=== PATIENT | male | born 1945 | race Caucasian/White ===

== ENCOUNTER → 2019-05-10 13:34 | Outpatient (CLI) | payer OTHER, SELFPAY ==
[2019-05-10 13:53] LABS: Bacteria Urine None Seen; RBC Urine None Seen (0-5/HPF); WBC Urine None Seen (0-5/HPF)
[2019-05-10 14:18] LABS: Add Manual Diff / Slide Review NO; Basophils Absolute Auto 0 /uL (0-100); Basophils Percent Auto 0.3 % (0-2); Eosinophils Absolute Auto 100 /uL (0-450); Eosinophils Percent Auto 1.4 % (2-4); Hematocrit 39.3 % (41-53); Hemoglobin 13.7 g/dL (13.5-17.5); Lymphocytes Absolute Auto 1400 /uL (1100-4500); Lymphocytes Percent Auto 24.1 % (25-40); Mean Corpuscular HGB Conc 34.8 % (30-36); Mean Corpuscular Hemoglobin 30.8 PG (26-34); Mean Corpuscular Volume 88.7 fL (80-100); Monocytes Absolute Auto 300 /uL (0-900); Monocytes Percent Auto 5.8 % (3-14); Neutrophils Absolute Auto 3900 /uL (1500-7000); Neutrophils Percent Auto 68.4 % (50-75); Platelet Count 115 X10^3/uL (150-400); Red Blood Cell Count 4.43 X10^6/uL (4.5-5.9); Red Cell Distribution Width 13.8 % (11.6-14.8); White Blood Cell Count 5.8 X10^3/uL (4.5-11.0)
[2019-05-10 14:47] LABS: BUN Creatinine Ratio 23.3 (6-22); Blood Urea Nitrogen 21 mg/dL (9-20); Calcium 9.4 mg/dL (8.4-10.2); Carbon Dioxide 30 mmol/L (22-32); Chloride 99 mmol/L (98-107); Estimated Glomerular Filt Rate > 60.0 mL/min (>60); Glucose 130 mg/dL (80-110); HEMOLYSIS < 15 (0-50); Potassium 4.4 mmol/L (3.4-5.1); Sodium 137 mmol/L (137-145)
[2019-05-10 14:51] LABS: Hemoglobin A1C% w Est Avg Glu 5.4 % (4.0-6.0)
[2019-05-10 14:59] LABS: Transferrin 209 mg/dL (206-381)
[2019-05-10 15:47] LABS: Appearance Urine UA CLEAR; Bilirubin Urine UA NEGATIVE (NEGATIVE); Color Urine UA YELLOW; Glucose Urine UA NEGATIVE (Negative); Ketones Urine UA NEGATIVE (NEGATIVE); Leukocyte Esterase Urine UA NEGATIVE (NEGATIVE); Nitrite Urine UA NEGATIVE (Negative); Occult Blood Urine UA NEGATIVE (Negative); Protein Urine UA NEGATIVE (Negative); Specific Gravity Urine UA <=1.005 (1.000-1.035); Urobilinogen Urine UA 0.2 E.U./dL (0.2)
[2019-05-10 16:31] LABS: Culture Indicated Urine Cult Not Indicated
== END ==
PROVIDERS: PCP Emergency Medicine Emergency Medical Services; Visit Provider Orthopaedic Surgery
DX: Z01.818 Encounter for other preprocedural examination (principal); E61.1 Iron deficiency; R73.9 Hyperglycemia, unspecified; N39.0 Urinary tract infection, site not specified
CPT/HCPCS: 36415; 80048; 81001; 83036; 84466; 85025; 93005

== ENCOUNTER 2019-06-25 11:25 | Inpatient (IN) | payer OTHER, SELFPAY ==
[2019-06-11 09:52] VITALS: BMI 37.3
[2019-06-25] VITALS (14 sets, daily range): BP systolic 124–157; BP diastolic 67–108; PULSE 46–80; RESP 12–19; TEMP 36.1–36.9; O2SAT 92–99; BMI 37.3
--- NOTE | 2019-06-25 11:16 | DI.RAD.S_ITS ---
PROCEDURE: XR SHOULDER LT 1V INDICATIONS: post op TECHNIQUE: One view of the shoulder was acquired. COMPARISON: None. FINDINGS: Bones: On this single postoperative image, a reverse total shoulder arthroplasty has been placed. No findings of hardware failure or hardware loosening are seen. The visualized ribs are unremarkable. No suspicious lytic or blastic lesions are seen. Soft tissues: No suspicious soft tissue calcifications. A postoperative drain has been placed. The visualized lung demonstrates an unremarkable appearance. IMPRESSION: Normal postoperative examination. Dictated by: Lito Araujo M.D. on 06/25/2019 at 16:04 Approved by: Lito Aarujo M.D. on 06/25/2019 at 16:05
[2019-06-25] MEDS: CELECOXIB 200 MG CAPSULE PO (12:26)
[2019-06-25] MEDS: ACETAMINOPHEN 325 MG TABLET 975 MG PO ×2 (12:26→20:40)
[2019-06-25] MEDS: PREGABALIN 75 MG CAPSULE PO (12:27)
[2019-06-25] MEDS: LACTATED RINGERS 1,000 ML 42 ML IV ×2 (12:43→16:07)
[2019-06-25] MEDS: MIDAZOLAM 2 MG/2 ML VIAL IV (13:42)
--- NOTE | 2019-06-25 13:46 | PM.PREOP ---
Pre-operative Note Interval Note History & Physical reviewed/Exam performed by Physician: Yes Changes to H&P: No
--- NOTE | 2019-06-25 14:03 | PM.OP.1 ---
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 Radiographic studies have revealed changes consistent with a massive rotator cuff tear and arthritis. They have elected to proceed with reverse total shoulder replacement after discussion of the risks benefits and alternatives. Risks discussed included but were not limited to: Failure to improve, instability, infection, nerve damage, deep venous thrombosis, pulmonary embolism, stroke, coma, myocardial infarction and . Surgeon: Mehdi Gilmore Materials And Processes Manager: Azalia Collazo Click Yes if Unassisted: No Anesthesia Type: General, Peripheral nerve block and Local Operative Notes Findings: Significant osteoarthritis and large rotator cuff tear. Closure Type: primary Specimen(s): none sent Prosthetic devices, grafts, tissues, transplants, or devices: Implants used in this procedure were manufactured by the [employer] and included an RSP total shoulder with a size 14 stem with a standard cup, a standard +436 mm socket insert, a 36 mm neutral glenoid head with retaining screw, a 30 mm screw length glenoid base plate with 4 locking screws measuring 26 mm, 26 mm, 14 mm and 14 mm in length. Applied: drain(s) and implant(s) Estimated Blood Loss (mL): 200 Blood products transfused: none Procedure in detail: The patient was seen in the preoperative area where they identified the left shoulder as the operative site and this was marked with my initials. They received preoperative antibiotics and underwent the induction of an interscalene block. They were taken to the operating room and placed on the operating room table in a supine position with the underwent the induction of a general anesthetic. There were then repositioned in the ?beach chair? position using a dedicated positioner. All pressure points were well padded. The knees were slightly bent to prevent tension on the sciatic nerves. The left arm was prepared from the fingertips to the base of the neck with ChloraPrep in the usual fashion and draped through sterile drapes. An approximately 15 cm incision was created starting at the clavicle just above the coracoid and going to the deltoid insertion. The deltopectoral interval was used to access the shoulder taking the vein to the medial side. The vein was protected throughout the case. The upper 1 cm of the pectoralis major was released. The biceps tendon was identified and used as a guide to releasing the remaining subscapularis. The biceps itself had ruptured. The shoulder was dislocated and a proximal humeral osteotomy performed using an extramedullary guide. A proximal humeral protector was then placed. Retractors were placed access the glenoid. The soft tissues were removed circumferentially around the glenoid. The guide was used to drill the guide hole in the center of the inferior glenoid. The tap was placed and used as a guide for the reamer. The tap was then removed and the glenoid base plate inserted. The peripheral locking screws were then placed through the appropriate guide. A trial glenoid head was applied. We then turned our attention to the humerus. The proximal humeral protector was removed. Cylindrical reamers were used to size the canal. Broaching was then performed beginning with a small broach and working up until a line to line fit with the reamer was obtained. The guide for the proximal metaphyseal reamer was then applied and the metaphysis was reamed appropriately. The trial metaphyseal portion of the body was then applied to the broach. Trial reductions were performed and the size of the glenoid head and the cup were optimized. Stability was checked in maximal internal and external rotation and range of motion was checked to allow access to the top of the head, internal rotation to an excess of 50? in the ?scarecrow position? and the ability to reach the groin. The appropriate final prosthetic components were then opened. The glenoid head was impacted into position and checked for rotational and axial stability before placing the set screw. The humeral prosthetic was then impacted into position. The humeral cup was placed. The joint was relocated and irrigated. A deep drain was placed. The deltopectoral interval was reapproximated with 0 Vicryl. Subcutaneous layer was closed with interrupted 3-0 Vicryl and skin with a running 3 0 V lock suture. Subcutaneous tissues were then infiltrated with 0.5% Marcaine for postoperative pain control. An Aquacel Ag dressing was applied and the patient's arm was placed in a sling. The patient was then transferred to the recovery room in good condition having tolerated the procedure well. Complications: none Post-operative Condition: stable Disposition: PACU Plan for aftercare: The patient will be maintained on a standard total shoulder protocol and likely discharge tomorrow.
[2019-06-25] MEDS: CEFAZOLIN 2 GM/100 ML FROZ.PIGGY IV (14:25)
[2019-06-25] MEDS: TRANEXAMIC ACID 1,000 MG VIAL 1000 MG INJ ×2 (14:41→15:57)
[2019-06-25] MEDS: BUPIVACAINE 0.5% W/ EPI (PF) 30 ML VIAL INJ (14:59)
--- NOTE | 2019-06-25 15:05 | SUR.OPER ---
Beach chair with Schlein shoulder positioner. Lower body on padded OR bed. Head in foam padded head cradle, secured with straps. Non-operative arm secured <90 degrees abduction. Pillow under knees,gel pad under heels. Safety belt at thigh. Cloth tape over blanket over lower legs.
--- NOTE | 2019-06-25 15:56 | SUR.PREOP ---
Block start time 1342. Monitoring initiated and maintained throughout procedure. Oxygen and medications given per anesthesiologist instructions. Patient remained stable throughout procedure, no adverse reactions noted. Block end time 1351. Patient left for OR in stable condition.
[2019-06-25] MEDS: HYDROMORPHONE 2 MG INJ IV ×2 (17:13→17:25)
--- NOTE | 2019-06-25 17:31 | SUR.PHASEI ---
Pt came to pacu with oral airway, out soon after arrival. medicated with dilaudid, report called to neva. then to les watson.
[2019-06-25] MEDS: OXYCODONE IR 5 MG TABLET PO ×2 (17:54→20:41)
[2019-06-25] MEDS: BENZOCAINE/MENTHOL 1 LOZ PKT 1 EACH PO ×2 (18:02→19:39)
[2019-06-25] MEDS: LACTATED RINGERS 1,000 ML 125 ML IV (19:34)
[2019-06-25] MEDS: ASPIRIN EC 81 MG TABLET PO (20:38)
[2019-06-25] MEDS: PRAZOSIN HCL 5 MG CAPSULE 10 MG PO (20:38)
[2019-06-25] MEDS: QUETIAPINE 25 MG TABLET PO (20:38)
[2019-06-25] MEDS: TRAZODONE 50 MG TABLET 75 MG PO (20:39)
[2019-06-25] MEDS: DOCUSATE 100 MG CAPSULE PO (20:40)
[2019-06-25] MEDS: PROPRANOLOL 10 MG TABLET PO (20:41)
--- NOTE | 2019-06-25 22:26 | PC.NURSE ---
Admit/Evening Shift Note- Patient arrived to room from pacu via bed. Patient alert and oriented and able to make needs known to staff. Admission questions done, medications reviewed, and physical assessment completed. Oriented patient to bed and bed controls, room, bathroom, lights, phone, menu, and call dao /tv remote. safety measures in place. patient agrees to call for assistance. bed alarm set. safety measures in place. call dao and phone within reach.
[2019-06-26] VITALS: BP 137/86; PULSE 62; RESP 18; TEMP 36.6; O2SAT 94
[2019-06-26] MEDS: LACTATED RINGERS 1,000 ML 125 ML IV (03:22)
[2019-06-26] MEDS: OXYCODONE IR 5 MG TABLET PO (03:23)
[2019-06-26 03:32] VITALS: BP 135/89; PULSE 78; RESP 16; TEMP 36.8; O2SAT 94
[2019-06-26 06:19] LABS: Hemoglobin 12.7 g/dL (13.5-17.5); Mean Corpuscular HGB Conc 34.5 % (30-36); Mean Corpuscular Hemoglobin 30.8 PG (26-34); Mean Corpuscular Volume 89.4 fL (80-100); Platelet Count 103 X10^3/uL (150-400); Red Blood Cell Count 4.14 X10^6/uL (4.5-5.9); Red Cell Distribution Width 13.7 % (11.6-14.8); White Blood Cell Count 11.4 X10^3/uL (4.5-11.0)
--- NOTE | 2019-06-26 07:51 | PC.NURSE ---
Patient sleeping soundly with CPAP in place, did not wake at this time. Bed alarm active for safety, with call light within reach. IV fluids infusing as ordered. Anticipate PT eval today. Sling in place. COntinue to follow.
[2019-06-26] MEDS: METHADONE 5 MG TABLET PO (08:23)
[2019-06-26] MEDS: ASPIRIN EC 81 MG TABLET PO (08:23)
[2019-06-26] MEDS: ACETAMINOPHEN 325 MG TABLET 975 MG PO (08:23)
[2019-06-26] MEDS: DOCUSATE 100 MG CAPSULE PO (08:23)
[2019-06-26] MEDS: LORATADINE 10 MG TABLET PO (08:24)
[2019-06-26] MEDS: OXYCODONE IR 10 MG TABLET PO ×2 (08:24→11:23)
[2019-06-26] MEDS: CELECOXIB 200 MG CAPSULE PO (08:24)
[2019-06-26] MEDS: PROPRANOLOL 10 MG TABLET PO (08:25)
[2019-06-26] MEDS: POLYETHYLENE GLYCOL 3350 17 GM POWD.PACK PO (08:29)
[2019-06-26 09:00] VITALS: BP 136/70; PULSE 56; RESP 18; TEMP 36.7; O2SAT 97
--- NOTE | 2019-06-26 10:12 | PM.DS.1 ---
History of Present Illness History of Present Illness Date Patient Seen: 06/26/19 Time Patient Seen: 10:12 Chief complaint: Left Total Shoulder Arthroplasty Narrative: The history and physical are contained in the chart and a previously completed note. Please refer to that note for this information. Discharge Providers Provider Date of admission: 06/25/19 11:25 Discharge Date: 06/26/19 Consults: 06/25/19 18:50 Consult to Discharge Planning Routine Comment: Consult to Physical Therapy Evaluate & Treat Comment: PROM 90 FF, 0 ER, 0 Abd, IR to body, pendulums Physician Instructions: Evaluate and Treat Discharge provider: Mehdi Gilmore MD Summary Hospital Course Discharge Diagnosis: 1. Left shoulder posttraumatic osteoarthritis with large rotator cuff tear 2. Post hemorrhagic anemia Hospital Course: The patient was admitted to the hospital and taken directly to the operating room on June 25, 2019. He underwent a left reverse total shoulder replacement for the above-noted arthritis and cuff tear. He tolerated the procedure well. He was stable on postoperative day 1 and felt to be ready for discharge. Status at Discharge Cognitive/behavioral status at discharge: oriented Functional status at discharge: independent ambulation Overall status at discharge: patient is progressing back to baseline Time Spent with Patient Time spent: Less than 30 minutes Exam Vital Signs (past 8 hours): - 06/26/19 03:32 06/26/19 09:00 Temperature 98.2 F 98.1 F Pulse Rate 78 56 L Respiratory Rate 16 18 Blood Pressure 135/89 136/70 Pulse Oximetry 94 97 Oxygen Delivery Method Room Air,CPAP Oxygen Flow Rate 0 Narrative Exam Narrative: Left shoulder wound is dressed with no drainage on the bandage. Light touch is intact in the radial, ulnar, median, muscular cutaneous and axillary nerve distribution. He can extend his thumb, abduct his thumb, abduct his fingers and can fire his biceps and deltoid. Objective Labs Result Diagrams: 06/26/19 05:42 Labs: Laboratory Results - last 24 hr 06/26/19 05:42 WBC 11.4 H RBC 4.14 L Hgb 12.7 L Hct 37.0 L MCV 89.4 MCH 30.8 MCHC 34.5 RDW 13.7 Plt Count 103 L Discharge Plan Discharge Plan Patient Disposition: Home Discharge orders & Medications Prescriptions: New acetaminophen 325 mg Tablet 975 mg PO TID 30 Days Qty: 270 RF: 0 aspirin 81 mg Tablet,Delayed Release (Dr/Ec) 81 mg PO BID 42 Days Qty: 84 RF: 0 oxycodone 5 mg Tablet 5 mg PO Q3HR PRN (Reason: Pain, Moderate (4-6)) Qty: 40 RF: 0 Continued ibuprofen 200 mg Capsule 400 mg PO Q6H PRN (Reason: Pain) RF: 0 prazosin 5 mg Capsule 10 mg PO BEDTIME RF: 0 propranolol 10 mg Tablet 10 mg PO BID RF: 0 trazodone 150 mg Tablet 75 mg PO BEDTIME RF: 0 methadone 5 mg Tablet 5 mg PO DAILY RF: 0 quetiapine 50 mg Tablet 25 mg PO BEDTIME RF: 0 loratadine 10 mg Capsule 10 mg PO DAILY RF: 0 Discontinued celecoxib 200 mg Capsule 200 mg PO DAILY RF: 0 hydrocodone-acetaminophen 5-325 mg Tablet 1 - 2 tab PO Q4-6H PRN (Reason: Pain) RF: 0 Follow up/Referrals: Mehdi Gilmore MD [Physician] - 2 Weeks Discharge Health Status Multidrug resistant organism: No MDRO Diet/Activity/Treatments Diet: Diet as Tolerated and Regular Activity: You may use your left arm in front of your body below shoulder level. Leave the arm in the sling until instructed to do so by physical therapy. You may do pendulum exercises. Cold/Heat Therapy: You may apply ice to the left shoulder for 15 minutes every hour as needed for pain control. Skin/Wound/Dressing Care Report to your healthcare provider any signs of infection, such as:: chills, fever, night sweats, increased pain, unusual drainage and unusual redness Dressing: Leave the dressing intact until postoperative follow-up. You may shower with the dressing in place. If the central strip of the dressing becomes saturated with either water or blood, please call the office. Visit Report/Discharge Packet Instructions: DI for Prescription Opioid Use, DI for Shoulder Replacement Stand Alone Forms: Surgery Discharge Quality VTE Deep Vein Thrombosis/Pulmonary Embolism Present on Admission: No
--- NOTE | 2019-06-26 10:58 | PC.NURSE ---
Hemovac drain DC'd intact, patient tolerated well. Gauze dressing in place. Discharge instructions and home care handouts reviewed with patient and his , they state understanding and have no further questions and concerns at this time. IV removed intact. Patient has follow up scheduled. Instructed to call surgeons office with questions or concerns including possible signs or symptoms of infection.
--- NOTE | 2019-06-26 11:03 | PT.IIE ---
Current Diagnoses Post-traumatic osteoarthritis, left shoulder (06/25/19) Other specified postprocedural states (06/25/19) Surgery Performed Operation Date: 06/25/19 13:45 Actual Procedures p Total Shoulder Arthroplasty - Reverse(Left) - Mehdi Gilmore MD Surgical History (Last Updated 06/11/19 @ 10:25 by Lexi Mcdonough, RN) History of lumbar fusion (Acute) History of repair of left rotator cuff (Acute) History of repair of right rotator cuff (Acute) Hx of bilateral cataract extraction (Acute) Hx of hernia repair (Acute) Hx of tonsillectomy (Acute) Medical History (Last Updated 06/11/19 @ 10:25 by Lexi Mcdonough RN) Asthma (Acute) Hearing impaired (Acute) Lipoma (Acute) Nerve damage (Acute) Numbness and tingling (Acute) ASHOK on CPAP (Acute) PTSD (post-traumatic stress disorder) (Acute) Tremor of both hands (Acute) Physical Therapy Inpatient Evaluation/Re-Eval M1 PT/OT-IP Prior Functional Status Start: 06/26/19 10:50 Freq: NEEDED Status: Active Protocol: Document 06/26/19 09:20 MB (Rec: 06/26/19 11:03 MB [id number]) Medical Review Prior Functional Status Medical History Reviewed Yes Communication WNLs Mobility and Gait I Activities of Daily Living and IADL's I Prior Functional Level (Other details) A fall 6 months ago, tripping over his dog Social History Household Members spouse Living Arrangements House Number of Floors (Floors) One Floor Number of Stairs To Enter/Railing? 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 Gilmore arrives and states that pt may use his arm in front of him but is not to reach out to the side or carry weights. He may perform pendulums and is to wear sling for 2 weeks when up. Can perform pendulum to wash under arm pit and perform elbow and wrist ROM exercises. Dr. Gilmore does not state WB status when asked. M3 PT-IP Subjective Start: 06/26/19 10:50 Freq: NEEDED Status: Active Protocol: Document 06/26/19 09:20 MB (Rec: 06/26/19 11:03 MB [id number]) Subjective Physical Therapy Visit Type Type Initial Evaluation Visit Start Time 09:20 Visit Stop Time 09:57 Total Visit Minutes 37 Notes Pt is able to mobilize I, perform HEP as instructed by PT and has no further acute PT needs. Eval and d/c today Physical Therapy Visit Comments Patient Goals To go home today Therapy Pain Assessment Pain When Pain Assessed During Mobility Pain Present Pain Present Pain Reported Location Left Shoulder Intensity 7 Scale Used Numeric (1 - 10) Description Aching Pain Management Techniques Re-positioning M4 PT-IP Mobility and Gait Start: 06/26/19 10:50 Freq: NEEDED Status: Active Protocol: Document 06/26/19 09:20 MB (Rec: 06/26/19 11:03 MB [id number]) PT-Bed Mobility Assessment Rolling Level of Assist Independent Supine to Sit Supine to Sit Independent Scooting Scooting to Edge of Bed Independent PT-Transfer Assessment Sit to and From Stand Sit to and from Stand Independent Transfer Ability Level of Assist Independent Comments Mobility Comments Pt uses RUE for bed mobility and transfers, sling donned LUE Gait Assessment Gait Gait Assistance Required: Independent Distance (Feet) 200 Assistive Devices Assistive Device None Gait Deviations General Gait Pattern Within Normal Limits Comments Gait Comments Sling donned LUE When left sitting in chair, sling doffed and LUE supported on pillows and this reduces pain Stair Climbing Assessment Evaluation Level of Assist On Stairs Independent Devices Stair Climbing Assistive Devices Right Railing Technique/Endurance Stair Climbing Direction Ascend and Descend Stair Climbing Technique Step Over Step,Step to Step Number of Steps Climbed 3 Query Text: Comments Stair Climbing Comments Reciprocal gait ascend and 1 step at a time descend d/t rail on left and he has to reach over with his right hand PT-Balance Assessment Sitting Balance and Reactions Static Sitting Balance Ability Good Dynamic Sitting Balance Ability Good Standing Balance and Reactions Static Standing Balance Ability Good Dynamic Standing Balance Ability Good M5 PT-IP Objective Assessments Start: 06/26/19 10:50 Freq: NEEDED Status: Active Protocol: Document 06/26/19 09:20 MB (Rec: 06/26/19 11:03 [id number]) Orientation Orientation/Cognition Level of Alertness Alert Orientation Name,Age,Birthday,Month,Date, Year,Place,Situation Language Function Ability No Deficits Noted Safety Awareness Understands Safety Issues Memory Description No Deficits Noted Gross Range of Motion Upper Extremity ROM Assessment Right Impaired Impairments R shoulder s/p surgery in the past and flexion to 150 deg; s /p L reverse TSR so not tested Lower Extremity ROM Assessment Within Functional Limits Strength Upper Extremity Strength Assessment Bilaterally Impaired Shoulder R 4/5; L NT Elbow R 5/5; L NT Lower Extremity Strength Assessment Within Functional Limits Comments Strength Comments Pt can move left elbow, wrist and fingers, mild edema in hand Sensation Assessment Sensation Gross Sensation Right LE Impaired Comments Sensation Comments History of nerve damage left elbow M6 PT-IP Treatment Start: 06/26/19 10:50 Freq: NEEDED Status: Active Protocol: Document 06/26/19 09:20 MB (Rec: 06/26/19 11:03 [id number]) Physical Therapy Treatment Exercises Exercises Shoulder Pendulums,Elbow Flexion/Extension,Wrist ROM, Hand ROM Education Education Provided Precautions,Post-Op Packet, Safety Brace Education [place],Patient M7 PT-IP Assessment and Plan Start: 06/26/19 10:50 Freq: NEEDED Status: Active Protocol: Document 06/26/19 09:20 MB (Rec: 06/26/19 11:03 [id number]) PT Summary Assessment and Plan Summary Assessment Summary Pt is a 73 y/o male presenting with left shoulder pain and decreased ROM s/p left reverse TSR last date. His mobility, gait and performance of LUE exercises are excellent and he has no acute PT needs. Plan is to d/c home with today and start OPPT per Dr. Gilmore this date. Frequency of Treatment Frequency Of Treatment Discharge Discharge Recommendations PT Discharge Recommendations Home with Assistance, Outpatient PT
== END 2019-06-26 11:36 | disposition home or self-care (01) | DRG 483 ==
PROVIDERS: Admitting Provider Orthopaedic Surgery; Visit Provider Orthopaedic Surgery
PROC: 0RRK00Z Replacement of Left Shoulder Joint with Reverse Ball and Socket Synthetic Substitute, Open Approach (ICD-10-PCS; CPT 23472; principal; 2019-06-25 13:45)
DX: M19.112 Post-traumatic osteoarthritis, left shoulder (principal); M75.122 Complete rotator cuff tear or rupture of left shoulder, not specified as traumatic; G47.33 Obstructive sleep apnea (adult) (pediatric); F43.10 Post-traumatic stress disorder, unspecified; J45.909 Unspecified asthma, uncomplicated; Z87.891 Personal history of nicotine dependence
CPT/HCPCS: 36415; 64450; 73020; 85027; 97110; 97161; C1776; J0690; J1100; J1170; J2250; J2405; J2704; J3010

== ENCOUNTER → 2020-05-14 10:42 | Outpatient (CLI) | payer OTHER, SELFPAY ==
[2019-06-25 11:31] VITALS: BMI 37.3
[2020-05-14 12:49] LABS: Add Manual Diff / Slide Review NO; Basophils Absolute Auto 0 /uL (0-100); Basophils Percent Auto 0.5 % (0-2); Eosinophils Absolute Auto 100 /uL (0-450); Eosinophils Percent Auto 2.1 % (2-4); Hematocrit 41.6 % (41-53); Hemoglobin 14.1 g/dL (13.5-17.5); Lymphocytes Absolute Auto 1900 /uL (1100-4500); Lymphocytes Percent Auto 28.8 % (25-40); Mean Corpuscular HGB Conc 33.9 % (30-36); Mean Corpuscular Hemoglobin 30.6 PG (26-34); Mean Corpuscular Volume 90.2 fL (80-100); Monocytes Absolute Auto 500 /uL (0-900); Monocytes Percent Auto 8.3 % (3-14); Neutrophils Absolute Auto 3900 /uL (1500-7000); Neutrophils Percent Auto 60.3 % (50-75); Platelet Count 122 X10^3/uL (150-400); Red Blood Cell Count 4.62 X10^6/uL (4.5-5.9); Red Cell Distribution Width 13.2 % (11.6-14.8); White Blood Cell Count 6.5 X10^3/uL (4.5-11.0)
[2020-05-14 13:04] LABS: Hemoglobin A1C% w Est Avg Glu 5.6 % (4.0-6.0)
[2020-05-14 13:08] LABS: BUN Creatinine Ratio 21.2 (6-22); Blood Urea Nitrogen 22 mg/dL (9-20); Calcium 9.2 mg/dL (8.4-10.2); Carbon Dioxide 29 mmol/L (22-32); Chloride 103 mmol/L (98-107); Estimated Glomerular Filt Rate > 60.0 mL/min (>60); Glucose 96 mg/dL (80-110); HEMOLYSIS < 15 (0-50); Potassium 4.3 mmol/L (3.4-5.1); Sodium 136 mmol/L (137-145)
== END ==
PROVIDERS: Referring Provider Orthopaedic Surgery; Visit Provider Orthopaedic Surgery
DX: Z01.818 Encounter for other preprocedural examination (principal); M25.511 Pain in right shoulder; R73.9 Hyperglycemia, unspecified; Z01.812 Encounter for preprocedural laboratory examination
CPT/HCPCS: 36415; 80048; 83036; 85025; 93005

== ENCOUNTER → 2020-05-23 11:09 | Outpatient (CLI) | payer OTHER, SELFPAY ==
[2019-06-25 11:31] VITALS: BMI 37.3
[2020-05-23 12:19] LABS: COVID19 -Nasal RAPID Negative (Negative)
== END ==
PROVIDERS: Referring Provider Orthopaedic Surgery; Visit Provider Nurse Practitioner
DX: Z11.59 Encounter for screening for other viral diseases (principal)
CPT/HCPCS: 87635

== ENCOUNTER 2020-05-25 06:16 | Inpatient (IN) | payer OTHER, SELFPAY ==
[2019-06-25 11:31] VITALS: BMI 37.3
[2020-05-13 13:33] VITALS: BMI 36.4
[2020-05-25] VITALS (19 sets, daily range): BP systolic 126–147; BP diastolic 69–95; PULSE 49–89; RESP 11–19; TEMP 36.1–37.6; O2SAT 94–98; BMI 36.6
--- NOTE | 2020-05-25 | DI.RAD.S_ITS ---
PROCEDURE: XR SHOULDER RT 1V INDICATIONS: POST OPERATIVE RIGHT SHOULDER TECHNIQUE: 1 view of the shoulder was acquired. COMPARISON: [facility] [place], CR, XR SHOULDER 2+ VIEWS RIGHT, 04/01/2020, 14:54. FINDINGS: Bones: Postsurgical changes are seen from a reverse total shoulder arthroplasty. The alignment appears normal on this single AP image. There is postsurgical widening of the acromioclavicular joint. Soft tissues: No suspicious soft tissue calcifications. Postsurgical changes are seen in the soft tissues overlying the shoulder. A surgical drain is present. IMPRESSION: Status post right shoulder arthroplasty with appropriate positioning on this single image. Dictated by: Eben Mckeon M.D. on 05/25/2020 at 9:57 Approved by: Eben Mckeon M.D. on 05/25/2020 at 10:01
[2020-05-25] MEDS: ACETAMINOPHEN 325 MG TABLET 975 MG PO (07:19)
[2020-05-25] MEDS: LACTATED RINGERS 1,000 ML 42 ML IV (07:20)
[2020-05-25] MEDS: PREGABALIN 75 MG CAPSULE PO (07:20)
[2020-05-25] MEDS: CELECOXIB 200 MG CAPSULE PO (07:21)
--- NOTE | 2020-05-25 07:37 | P.OP_ITS ---
Operative Date/Time/Diagnoses Date of procedure: 05/25/20 Time of procedure: 10:07 Pre-op diagnosis: Right shoulder rotator cuff arthropathy Post-op diagnosis: same Procedure & Clinicians Procedure: Right reverse total shoulder Same procedure as scheduled: Yes Indications: The patient is had chronic right shoulder pain unresponsive to nonoperative therapies. Radiographic studies have revealed changes consistent with a massive rotator cuff tear and arthritis. They have elected to proceed with reverse total shoulder replacement after discussion of the risks benefits and alternatives. Risks discussed included but were not limited to: Failure to improve, instability, infection, nerve damage, deep venous thrombosis, pulmonary embolism, stroke, coma, myocardial infarction and . Surgeon: Mehdi Gilmore Machine Bunch Maker: Azalia Collazo Click Yes if Unassisted: No Anesthesia Type: General, Peripheral nerve block and Local Operative Notes Findings: Massive rotator cuff tear with secondary rotator cuff arthropathy. Closure Type: primary Specimen(s): none sent Prosthetic devices, grafts, tissues, transplants, or devices: Implants used in this procedure were manufactured by the [employer] and included a Altivate RSP with a size 14 standard humeral stem with a 36 mm +4 standard humeral socket insert. There was a size 36 neutral glenoid head with retaining screw. There was a 30 mm screw length glenoid base plate with 4 peripheral locking screws measuring 34, 30 14 and 14 mm in length. Applied: implant(s) Estimated Blood Loss (mL): 100 Blood products transfused: none Procedure in detail: The patient was seen in the preoperative area where they identified the right shoulder as the operative site and this was marked with my initials. They received preoperative antibiotics and underwent the induction of an interscalene block. They were taken to the operating room and placed on the operating room table in a supine position with the underwent the induction of a general anesthetic. There were then repositioned in the ?beach chair? position using a dedicated positioner. All pressure points were well padded. The knees were slightly bent to prevent tension on the sciatic nerves. The right arm was prepared from the fingertips to the base of the neck with ChloraPrep in the usual fashion and draped through sterile drapes. An approximately 15 cm incision was created starting at the clavicle just above the coracoid and going to the deltoid insertion. The deltopectoral interval was used to access the shoulder taking the vein to the medial side. The vein was protected throughout the case. The upper 1 cm of the pectoralis major was released. The biceps tendon had ruptured. The subscapularis had previously torn and the scar tissue in its place was excised. The shoulder was dislocated and a proximal humeral osteotomy performed using an extramedullary guide. A proximal humeral protector was then placed. Retractors were placed access the glenoid. A 360 degree release was performed of the soft tissues around the glenoid. Care was taken to remain on bone to avoid the axillary nerve. The guide was used to drill the guide hole in the center of the inferior glenoid. The tap was placed and used as a guide for the reamer. The tap was then removed and the glenoid base plate inserted. The peripheral locking screws were then placed through the appropriate guide. A trial glenoid head was applied. We then turned our attention to the humerus. The proximal humeral protector was removed. Cylindrical reamers were used to size the canal. Broaching was then performed beginning with a small broach and working up until a line to line fit with the reamer was obtained. The guide for the proximal metaphyseal reamer was then applied and the metaphysis was reamed appropriately. The trial metaphyseal portion of the body was then applied to the broach. Trial reductions were performed and the size of the glenoid head and the cup were optimized. Stability was checked in maximal internal and external rotation and range of motion was checked to allow access to the top of the head, internal rotation to an excess of 50? in the ?scarecrow position? and the ability to reach the groin. The appropriate final prosthetic components were then opened. The glenoid head was impacted into position and checked for stability before placing the set screw. The humeral prosthetic was then impacted into position. The humeral cup was placed. The joint was relocated and irrigated. A deep drain was placed. The deltopectoral interval was reapproximated with 0 Vicryl. Subcutaneous layer was closed with interrupted 3-0 Vicryl and skin with a running 3 0 V lock suture. Subcutaneous tissues were then infiltrated with 0.5% Marcaine for postoperative pain control. An Aquacel Ag dressing was applied and the patient's arm was placed in a sling. The patient was then transferred to the recovery room in good condition having tolerated the procedure well. Complications: none Post-operative Condition: stable Disposition: PACU Plan for aftercare: The patient will be allowed to use his hand in front of his body below shoulder level. He will be allowed to do pendulum exercises. He will be discharged when safe for his home environment likely later this afternoon or tomorrow.
--- NOTE | 2020-05-25 07:37 | PM.PREOP ---
Pre-operative Note COVID-19 COVID-19 status: Negative Result date/Date tested (Pos, Neg/Pending): 05/23/20 Interval Note History & Physical reviewed/Exam performed by Physician: Yes Changes to H&P: No
[2020-05-25] MEDS: MIDAZOLAM 2 MG/2 ML VIAL IV (07:38)
[2020-05-25] MEDS: CEFAZOLIN 2 GM/100 ML FROZ.PIGGY IV (07:57)
--- NOTE | 2020-05-25 07:59 | SUR.PREOP ---
0738 Medicated for nerve block, procedure initiated by Dr. Montague following discussion with patient and . Pt slept through procedure with occasional response. Resp unlabored; even and regular. Skin warm and dry, tolerated procedure well.
--- NOTE | 2020-05-25 08:24 | P.PCN_ITS ---
Procedures Date/Time Date of procedure: 05/25/20 Time of procedure: 07:40 Nerve Block Time out performed: Yes Local anesthetic used: other (15mL 0.5opivacaine, 5mL 2* idocaine) Location of anesthetic used: interscalene Amount of anesthesia used (mL): 20 Nerve blocks: brachial plexus (interscalene) Procedure successful: Yes Patient tolerated procedure: well Complications: none Additional comments: Brachial plexus nerve block for post operative pain management. Risks and benefits discussed, including bleeding, infection, intravascular injection, nerve damage, block failure. Standard ASA monitors, NC O2. Pt supine. Chloroprep site preparation, sterile technique. Brachial plexus identified with US guidance, traced from supraclavicular to interscalene. 1mL 2% lidocaine skin wheal. 22g x 50mm Pajunk advanced with in-plane US guidance to brachial plexus. Negative aspiration. LA injected with intermittent negative aspiration. Good LA spread noted on US. No pain, no paraesthesia. Pt tolerated procedure well. Vital signs stable.
--- NOTE | 2020-05-25 08:27 | SUR.OPER ---
Beach chair with Schlein shoulder positioner. Lower body on padded OR bed. Head in foam padded head cradle, secured with straps. Non-operative arm secured <90 degrees abduction. Pillow under knees. Safety belt at thigh. Cloth tape over blanket over lower legs.
[2020-05-25] MEDS: TRANEXAMIC ACID 1,000 MG VIAL 1000 MG INJ ×2 (08:34→09:43)
[2020-05-25] MEDS: BUPIVACAINE 0.5% W/ EPI (PF) 30 ML VIAL INJ (08:35)
--- NOTE | 2020-05-25 11:24 | SUR.PHASEI ---
1113 to room 213, bed down and locked, call light within reach. pt awake, oriented, pain in right shoulder 7/10 with a baseline of 6/10. Had discussed pain meds prior to transfer and the patient preferred to go to his room and then treat. ice chips given and tolerated. Wore CPAP in PACU after he woke up and requested it. No apnea noted prior to CPAP. skin warm and dry, resp unlabored, no increase in R Shoulder drainage after arrival to PACU. report given, 3 RNs and HAZARDOUS MATERIAL TECHNICIAN present; Yarelis Juarez RN, Sadaf Mi, AMY, and AMY Polanco. No questions form pt or staff. Clothing bag and CPAP to the room with the patient. CPAP and SCDs on. Attempted to notify three times that he is in the room.
[2020-05-25] MEDS: HYDROMORPHONE 2 MG TABLET PO ×3 (11:33→20:46)
--- NOTE | 2020-05-25 12:07 | PC.ADMIT ---
Safe hand off from PACU. VSS, patient is bradycardic. Lung sounds Dim throughout and patient has home CPAP, 96%. Patient has pain in R shoulder 7/10. 2mg of dilaudid PO given. CMS intact, patient has numbness, tingling and heaviness in right arm. Call light within reach, bed alarm is active, bed is low and locked. [id number] [facility] Admission Note: The patient,Cristi Cates,74 y/o, was given written information regarding hospital policies, unit procedures and contact persons. Patient's smoking status: Former smoker. Vital Signs - 8 hr 05/25/20 07:10 05/25/20 09:53 05/25/20 09:58 Temperature 98.2 F 98.2 F Pulse Rate 51 L 65 70 Respiratory Rate 16 17 19 Blood Pressure 147/82 H 136/73 136/73 Pulse Oximetry 98 94 94 05/25/20 10:03 05/25/20 10:08 05/25/20 10:18 Temperature Pulse Rate 59 L 55 L 51 L Respiratory Rate 16 18 14 Blood Pressure 128/71 131/69 126/81 Pulse Oximetry 95 95 95 05/25/20 10:28 05/25/20 10:38 05/25/20 10:48 Temperature Pulse Rate 53 L 57 L 50 L Respiratory Rate 11 L 15 14 Blood Pressure 147/81 H 138/80 132/77 Pulse Oximetry 96 96 94 05/25/20 10:58 05/25/20 11:03 05/25/20 11:21 Temperature 97.7 F Pulse Rate 49 L 50 L 57 L Respiratory Rate 13 12 14 Blood Pressure 135/75 132/72 132/76 Pulse Oximetry 95 94 96 05/25/20 11:51 Temperature 97.7 F Pulse Rate 51 L Respiratory Rate 14 Blood Pressure 133/77 Pulse Oximetry 95
--- NOTE | 2020-05-25 15:09 | PT.IIE ---
Addendum entered and electronically signed by Kayla Nair PT 05/25/20 15:10: Treatment was provided by ADELAIDE Lance and supervised by Kayla Nair PT. I personally reviewed this note and agree with its contents. Original Note: Current Diagnoses Post-traumatic osteoarthritis, left shoulder (05/25/20) Unspecified rotator cuff tear or rupture of right shoulder, not specified as traumatic (05/25/20) Complete rotator cuff tear or rupture of left shoulder, not specified as traumatic (05/25/20) Other specified postprocedural states (05/25/20) Surgery Performed Operation Date: 05/25/20 07:45 Actual Procedures p Total Shoulder Arthroplasty - Reverse(Right) - Mehdi Gilmore MD Surgical History (Last Updated 05/13/20 @ 13:41 by Lexi Mcdonough RN) History of arthroplasty of left shoulder (06/24/19) History of lumbar fusion History of repair of left rotator cuff History of repair of right rotator cuff Hx of bilateral cataract extraction Hx of hernia repair Hx of tonsillectomy Medical History (Last Updated 06/11/19 @ 10:25 by Lexi Mcdonough RN) Asthma Hearing impaired Lipoma Nerve damage Numbness and tingling ASHOK on CPAP PTSD (post-traumatic stress disorder) Tremor of both hands Physical Therapy Inpatient Evaluation/Re-Eval M1 PT/OT-IP Prior Functional Status Start: 05/25/20 10:35 Freq: NEEDED Status: Active Protocol: Document 05/25/20 14:28 DE (Rec: 05/25/20 15:01 DE [id number]) Medical Review Prior Functional Status Medical History Reviewed Yes Diet/Fluid Consistency Regular Communication WNL. No deficits noted. Able to make needs known. Mobility and Gait IND for all mobility and amb without AD at baseline. Pt wore sling at night to prevent from dislocation. Activities of Daily Living and IADL's IND for all ADLs and IADLs at baseline. Prior Functional Level (Other details) Hx of L total shoulder replacement in May 2019. Social History Household Members spouse Living Arrangements House Number of Floors (Floors) One Floor Number of Stairs To Enter/Railing? Front entrance has 2 MIREYA with L railing up. Garage entrance has 2 MIREYA with R railing up. Home Environment Standard Height Toilet,High Toilet,Walk in Shower Home Equipment Straight Cane,Hand Held Shower ,Grab Bars Near Toilet,Grab Bars In Shower Employment Status Retired Additional Social History Comment Pt lives with spouse, who will be available to assist at home full-time. M2 PT-IP Current Condition Start: 05/25/20 10:35 Freq: NEEDED Status: Active Protocol: Document 05/25/20 14:28 DE (Rec: 05/25/20 15:01 DE [id number]) Physical Therapy Current Condition Current Condition Evaluation Date 05/25/20 Treatment Diagnosis R reverse total shoulder replacement; Difficulty with performing ADLs. Onset Date 05/25/20 Precautions Shoulder Precautions Sling,Internal Rotation to Body,No External Rotation,No Abduction,Forward Flexion to 90 degrees M3 PT-IP Subjective Start: 05/25/20 10:35 Freq: NEEDED Status: Active Protocol: Document 05/25/20 14:28 DE (Rec: 05/25/20 15:01 DE [id number]) Subjective Physical Therapy Visit Type Type Initial Evaluation Visit Start Time 13:05 Visit Stop Time 13:43 Total Visit Minutes 38 Notes SPT Jose Juan led session under direct supervision of PT Kayla. Number of FOOD AND BEVERAGE SERVICE MANAGER Visits 0 Physical Therapy Visit Comments Patient Comments Pt is agreeable to do PT. M4 PT-IP Mobility and Gait Start: 05/25/20 10:35 Freq: NEEDED Status: Active Protocol: Document 05/25/20 14:28 DE (Rec: 05/25/20 15:01 DE [id number]) PT-Bed Mobility Assessment Supine to Sit Supine to Sit Minimal Assistance,1 Person Assistance,Head of Bed Elevated Sit to Supine Sit to Supine Minimal Assistance,1 Person Assistance,Head of Bed Elevated Scooting Scooting to Edge of Bed Minimal Assistance PT-Transfer Assessment Sit to and From Stand Sit to and from Stand Contact Guard Assistance,Use of Upper Extremities Equipment Transfer Assistive Device None,Gait Belt Orthotic/Prosthetic Devices or Brace: No Transfers Transfer Destination Bed Transfer Technique Amb Transfer Ability Level of Assist Minimal Assistance,1 Person Assistance,Use of Upper Extremities Comments Mobility Comments Pt was lying supine with elevated HOB upon arrival. Pt completed supine to sit on L side EOB with elevated HOB and 1P min CONSERVATION EDUCATOR to pull himself to EOB. Pt reports he can normally get OOB by himself but he has been using extra help after surgery. Pt then completed sit to stand with CGA and use of L hand. Pt requested to use the bathroom. Pt amb 30 ft to the toilet and back to the L side EOB with CGA. Pt was able to void in standing. The sling was too small for pt. Replaced the sling with a larger sling and fitted it while sitting at EOB . Pt completed sit to supine with elevated HOB and 1P min assist for lifting BLE. Pt also required 1P min assist for scooting laterally in bed. B SCD activated and call light placed within reach. Gait Assessment Gait Gait Assistance Required: Contact Guard Assist Distance (Feet) 30 Assistive Devices Assistive Device Gait Belt Orthotic/Prosthetic Devices or Brace: No Gait Deviations General Gait Pattern Within Normal Limits Comments Gait Comments See mobility comments. Stair Climbing Assessment Comments Stair Climbing Comments Not assessed. PT-Balance Assessment Sitting Balance and Reactions Static Sitting Balance Ability Normal Dynamic Sitting Balance Ability Normal Standing Balance and Reactions Static Standing Balance Ability Normal Dynamic Standing Balance Ability Normal M5 PT-IP Objective Assessments Start: 05/25/20 10:35 Freq: NEEDED Status: Active Protocol: Document 05/25/20 14:28 DE (Rec: 05/25/20 15:01 ME [id number]) Orientation Orientation/Cognition Level of Alertness Alert Orientation Name,Age,Birthday,Month,Date, Year,Day of Week,Place, Situation Language Function Ability No Deficits Noted Safety Awareness Understands Safety Issues Memory Description No Deficits Noted Gross Range of Motion Upper Extremity ROM Assessment Right Impaired Strength Upper Extremity Strength Assessment Right Impaired Coordination Assessment Gross Coordination Gross Coordination WNL Sensation Assessment Sensation Gross Sensation WNL Muscle Tone Muscle Tone WNL Yes M6 PT-IP Treatment Start: 05/25/20 10:35 Freq: NEEDED Status: Active Protocol: Document 05/25/20 14:28 DE (Rec: 05/25/20 15:01 DE [id number]) Physical Therapy Treatment Exercises Exercises Shoulder Pendulums,Wrist ROM, Hand ROM Education Education Provided Precautions,Post-Op Packet, Safety Other Treatments Other Treatment Performed Pt was educated on precautions , safety, and role of PT. M7 PT-IP Assessment and Plan Start: 05/25/20 10:35 Freq: NEEDED Status: Active Protocol: Document 05/25/20 14:28 DE (Rec: 05/25/20 15:01 DE [id number]) PT Summary Assessment and Plan Potential Rehabilitation Potential Excellent Status of Condition at Evaluation Evolving Summary Impairments Pain,ROM,Strength,Bed Mobility ,Transfers,Gait,Activity Tolerance Assessment Summary Cristi is a 74 yo male POD0 s/ p R reverse total shoulder replacement. At baseline, pt was IND for all mobility, amb, and ADLs including driving without AD. On evaluation, pt needed 1P min assist for bed mobility and CGA for sit <> stand and amb. Pt tolerated treatment well. Pt will need to improve gait distance and perform 2 steps with unilateral railing. PT anticipates pt will d/c home with assistance once medically cleared. Goals Bed Mobility Goal Independent Transfer Goal Independent Gait Goal Independent Gait Distance 200 Other Goals Pt will perform 2 steps up and down with unilateral railing. Days to Meet Goals 3 Frequency of Treatment Frequency Of Treatment Twice a Day Treatment Plan Physical Therapy Treatment Plan Bed Mobility Training,Transfer Training,Gait Training, Therapeutic Exercise,Post Op Education,Discharge Planning, Hot or Cold Pack Other Recommendations and Next Treatment Amb and stair climbing. Focus Recommendations To Nursing Amount of Assist Needed 1 Person Assist Discharge Recommendations PT Discharge Recommendations Home with Assistance Transportation Needs at Discharge Private Vehicle
[2020-05-25] MEDS: QUETIAPINE 25 MG TABLET PO (20:46)
[2020-05-25] MEDS: TRAZODONE 50 MG TABLET 150 MG PO (20:46)
[2020-05-25] MEDS: PROPRANOLOL 10 MG TABLET PO (20:46)
[2020-05-25] MEDS: PRAZOSIN HCL 5 MG CAPSULE 10 MG PO (20:46)
[2020-05-25] MEDS: SODIUM CHLORIDE 0.9% FLUSH 10 ML IV (20:47)
[2020-05-26] VITALS: BP 130/70; PULSE 65; RESP 20; TEMP 36.8; O2SAT 96
[2020-05-26] MEDS: HYDROMORPHONE 2 MG TABLET PO ×4 (00:19→08:21)
[2020-05-26 04:03] VITALS: BP 99/60; PULSE 58; RESP 18; TEMP 36.1; O2SAT 98
[2020-05-26 05:23] LABS: Hematocrit 37.7 % (41-53); Hemoglobin 13.1 g/dL (13.5-17.5); Mean Corpuscular HGB Conc 34.6 % (30-36); Mean Corpuscular Hemoglobin 30.9 PG (26-34); Mean Corpuscular Volume 89.3 fL (80-100); Platelet Count 117 X10^3/uL (150-400); Red Blood Cell Count 4.23 X10^6/uL (4.5-5.9); Red Cell Distribution Width 13.5 % (11.6-14.8); White Blood Cell Count 13.5 X10^3/uL (4.5-11.0)
--- NOTE | 2020-05-26 07:32 | PM.DS.1 ---
History of Present Illness History of Present Illness Date Patient Seen: 05/26/20 Time Patient Seen: 07:33 Chief complaint: Right Total Shoulder Arthroplasty - Reverse Narrative: The history and physical is contained in the chart previously completed note. Please refer to that note for this information. Discharge Providers Provider Date of admission: 05/25/20 06:16 Discharge Date: 05/26/20 Primary care physician: DENA Brooks Consults: 05/25/20 05:25 Consult to Respiratory Therapy Evaluate & Treat Comment: ASHOK+CPAP, s/p TSA, interscalene block, BMI 36 Physician Instructions: Evaluate and treat 05/25/20 09:47 Consult to Discharge Planning Routine Comment: Consult to Physical Therapy Evaluate & Treat Comment: Pendulums only, may use hand infront of torso Physician Instructions: Evaluate and Treat Discharge provider: Mehdi Gilmore MD Summary Hospital Course Discharge Diagnosis: 1. Right shoulder rotator cuff tear arthropathy 2. Post hemorrhagic anemia Hospital Course: Patient was admitted to the hospital and taken directly to the operating room on May 25, 2020. He underwent a right reverse total shoulder without complications. He had mild issues with pain control overnight but was ready for discharge on postoperative day 1. Status at Discharge Cognitive/behavioral status at discharge: oriented Functional status at discharge: independent ambulation Overall status at discharge: patient is progressing back to baseline Time Spent with Patient Time spent: Less than 30 minutes Exam Vital Signs (past 8 hours): - 05/26/20 00:00 05/26/20 04:03 Temperature 98.3 F 97.0 F L Pulse Rate 65 58 L Respiratory Rate 20 18 Blood Pressure 130/70 99/60 Pulse Oximetry 96 98 Oxygen Delivery Method Room Air Oxygen Flow Rate 0 Narrative Exam Narrative: Right shoulder wound is dressed with minimal drainage on the bandage. Light touch is intact in the radial, ulnar, median, muscular cutaneous and axillary nerve distribution. He can extend his thumb, abduct his thumb abduct his fingers and can fire his biceps and deltoid. Objective Labs Result Diagrams: 05/26/20 05:07 Labs: Laboratory Results - last 24 hr 05/26/20 05:07 WBC 13.5 H RBC 4.23 L Hgb 13.1 L Hct 37.7 L MCV 89.3 MCH 30.9 MCHC 34.6 RDW 13.5 Plt Count 117 L [facility] Medical History (Updated 06/11/19 @ 10:25 by Lexi Mcdonough RN) Asthma Hearing impaired Lipoma Nerve damage Numbness and tingling ASHOK on CPAP PTSD (post-traumatic stress disorder) Tremor of both hands Surgical History (Updated 05/13/20 @ 13:41 by Lexi Mcdonough RN) History of arthroplasty of left shoulder (06/24/19) History of lumbar fusion History of repair of left rotator cuff History of repair of right rotator cuff Hx of bilateral cataract extraction Hx of hernia repair Hx of tonsillectomy Social History household members: spouse Smoking Status: Former smoker alcohol intake: former Discharge Assessment & Plan Assessment and Plan Assessment: Stable postoperative day 1 status post right reverse total shoulder replacement. He has a mild post hemorrhagic anemia. He is medically stable and ready for discharge home. Plan of Treatment: Discharged home with follow-up in my office in 10-14 days. Prescriptions for hydromorphone and Vistaril as well as instructions for the use of aspirin for DVT prophylaxis, Tylenol and ibuprofen have been given. Discharge Plan Discharge Plan Patient Disposition: Home Discharge orders & Medications Prescriptions: New aspirin 81 mg Tablet,Delayed Release (Dr/Ec) 81 mg PO BID 42 Days Qty: 84 RF: 0 hydromorphone 2 mg Tablet 2 mg PO Q3H PRN (Reason: Pain, Severe (7-10)) Qty: 40 RF: 0 hydroxyzine pamoate 25 mg Capsule 25 mg PO Q6HR PRN (Reason: Spasms) Qty: 30 RF: 0 Continued prazosin 5 mg Capsule 10 mg PO BEDTIME RF: 0 propranolol 10 mg Tablet 10 mg PO BID RF: 0 methadone 5 mg Tablet 5 mg PO DAILY RF: 0 quetiapine 50 mg Tablet 25 mg PO BEDTIME RF: 0 loratadine 10 mg Capsule 10 mg PO DAILY RF: 0 celecoxib 200 mg Capsule 200 mg PO DAILY PRN (Reason: Pain) RF: 0 trazodone 150 mg Tablet 150 mg PO BEDTIME RF: 0 docusate sodium 250 mg Capsule 250 mg PO BID PRN (Reason: Constipation) RF: 0 Discontinued hydrocodone-acetaminophen 5-325 mg Tablet 1 tab PO QID PRN (Reason: Pain) RF: 0 Follow up/Referrals: Miguel Wagner ARNP [Primary Care Provider] - Mehdi Gilmore MD [Physician] - 2 Weeks Discharge Health Status Multidrug resistant organism: No MDRO Diet/Activity/Treatments Diet: Diet as Tolerated and Regular Activity: You may do pendulum exercises. You may use your arm in front of your body below shoulder level. Wear the sling except for exercises and for hygiene. Skin/Wound/Dressing Care Report to your healthcare provider any signs of infection, such as:: chills, fever, night sweats, increased pain, unusual drainage and unusual redness Dressing: You may shower with the dressing in place. If the central strip of the dressing becomes saturated with either water or blood, please call the office. Leave the dressing in place until your follow-up. Visit Report/Discharge Packet Instructions: DI for Prescription Opioid Use, DI for Shoulder Replacement Stand Alone Forms: Surgery Discharge Discharge Data Primary Care Provider: Miguel Wagner VTE Deep Vein Thrombosis/Pulmonary Embolism Present on Admission: No
[2020-05-26] MEDS: LORATADINE 10 MG TABLET PO (08:21)
[2020-05-26] MEDS: PROPRANOLOL 10 MG TABLET PO (08:21)
[2020-05-26] MEDS: METHADONE 5 MG TABLET PO (08:21)
[2020-05-26] MEDS: SODIUM CHLORIDE 0.9% FLUSH 10 ML IV (08:23)
[2020-05-26 09:13] VITALS: BP 129/70; PULSE 74; RESP 17; TEMP 36.6; O2SAT 97
[2020-05-26 09:25] VITALS: PULSE 70; RESP 16; O2SAT 100
--- NOTE | 2020-05-26 10:04 | PT.IPTN ---
Current Diagnoses Post-traumatic osteoarthritis, left shoulder (05/25/20) Unspecified rotator cuff tear or rupture of right shoulder, not specified as traumatic (05/25/20) Complete rotator cuff tear or rupture of left shoulder, not specified as traumatic (05/25/20) Other specified postprocedural states (05/25/20) Surgery Performed Operation Date: 05/25/20 07:45 Actual Procedures p Total Shoulder Arthroplasty - Reverse(Right) - Mehdi Gilmore MD Physical Therapy Treatment Note M2 PT-IP Current Condition Start: 05/25/20 10:35 Freq: NEEDED Status: Discharge Protocol: Document 05/25/20 14:28 DE (Rec: 05/25/20 15:01 DE [id number]) Physical Therapy Current Condition Current Condition Evaluation Date 05/25/20 Treatment Diagnosis R reverse total shoulder replacement; Difficulty with performing ADLs. Onset Date 05/25/20 Precautions Shoulder Precautions Sling,Internal Rotation to Body,No External Rotation,No Abduction,Forward Flexion to 90 degrees M3 PT-IP Subjective Start: 05/25/20 10:35 Freq: NEEDED Status: Discharge Protocol: Document 05/26/20 09:41 (Rec: 05/26/20 11:31 [email or web address]) Subjective Physical Therapy Visit Type Type Treatment Note Visit Start Time 09:41 Visit Stop Time 10:04 Total Visit Minutes 23 Notes KAREEN Garrison led tx under direct supervision of Annita LUJAN for the entire session. Number of TRANSPORTATION ASSISTANT Visits 1 Physical Therapy Visit Comments Patient Comments Pt is agreeable to do PT. Therapy Pain Assessment Location Right shoulder Intensity 7 Scale Used Numeric (0 - 10) Pain Behaviors Facial Grimacing,Wincing Pain Management Techniques Apply Cold,Re-positioning, Timing of Activity with Medications M4 PT-IP Mobility and Gait Start: 05/25/20 10:35 Freq: NEEDED Status: Discharge Protocol: Document 05/26/20 09:41 (Rec: 05/26/20 11:31 [id number]) PT-Bed Mobility Assessment Supine to Sit Supine to Sit Standby Assistance,1 Person Assistance,Head of Bed Elevated Sit to Supine Sit to Supine Standby Assistance,1 Person Assistance,Head of Bed Elevated Scooting Scooting to Edge of Bed Standby Assistance PT-Transfer Assessment Sit to and From Stand Sit to and from Stand Standby Assistance,Use of Upper Extremities Equipment Transfer Assistive Device None,Gait Belt Orthotic/Prosthetic Devices or Brace: No Transfers Transfer Destination Bed Transfer Technique Amb Transfer Ability Level of Assist Standby Assistance,1 Person Assistance Comments Mobility Comments Pt lying in bed supine w/ HOB elevated upon arrival. Pt completed supine to sit SBA sit on L EOB. Sit-stand w/ use of L UE, CGA at first just for safety and then SBA once pt looked safe. Pt ambulated w /o AD in hallway ~175 to therapy stairs. Completed 3 stairs ascend/descend one time step over step w/ CGA for safety and unilateral rail. Pt then amb ~75' back to room. Stand to sit SBA on L EOB. Reviewed precautions, donning/ doffing sling and practiced pendulum exercise. Pt given ice pack to reduce pain. Pts came in at end of tx and she was brought up to date on his progress. Left w/ call light and all needs within reach. Gait Assessment Gait Gait Assistance Required: Standby Assistance,1 Person Assist Distance (Feet) 250 Assistive Devices Assistive Device Gait Belt Orthotic/Prosthetic Devices or Brace: No Gait Deviations General Gait Pattern Within Normal Limits Comments Gait Comments See mobility comments. Stair Climbing Assessment Evaluation Level of Assist On Stairs Contact Guard Assistance,1 Person Assistance Devices Stair Climbing Assistive Devices Left Railing,Right Railing Technique/Endurance Stair Climbing Direction Ascend and Descend Stair Climbing Technique Step Over Step Number of Steps Climbed 3 Stair Climbing Set # Repetitions (reps) 1 Comments Stair Climbing Comments See mobility section. PT-Balance Assessment Sitting Balance and Reactions Static Sitting Balance Ability Normal Dynamic Sitting Balance Ability Normal Standing Balance and Reactions Static Standing Balance Ability Normal Dynamic Standing Balance Ability Normal M5 PT-IP Objective Assessments Start: 05/25/20 10:35 Freq: NEEDED Status: Discharge Protocol: Document 05/25/20 14:28 DE (Rec: 05/25/20 15:01 DE [id number]) Orientation Orientation/Cognition Level of Alertness Alert Orientation Name,Age,Birthday,Month,Date, Year,Day of Week,Place, Situation Language Function Ability No Deficits Noted Safety Awareness Understands Safety Issues Memory Description No Deficits Noted Gross Range of Motion Upper Extremity ROM Assessment Right Impaired Strength Upper Extremity Strength Assessment Right Impaired Coordination Assessment Gross Coordination Gross Coordination WNL Sensation Assessment Sensation Gross Sensation WNL Muscle Tone Muscle Tone WNL Yes M6 PT-IP Treatment Start: 05/25/20 10:35 Freq: NEEDED Status: Discharge Protocol: Document 05/25/20 14:28 DE (Rec: 05/25/20 15:01 DE [id number]) Physical Therapy Treatment Exercises Exercises Shoulder Pendulums,Wrist ROM, Hand ROM Education Education Provided Precautions,Post-Op Packet, Safety Other Treatments Other Treatment Performed Pt was educated on precautions , safety, and role of PT. M7 PT-IP Assessment and Plan Start: 05/25/20 10:35 Freq: NEEDED Status: Discharge Protocol: Document 05/26/20 09:41 (Rec: 05/26/20 11:31 [id number]) PT Summary Assessment and Plan Potential Rehabilitation Potential Excellent Summary Impairments Pain,ROM,Strength,Bed Mobility ,Transfers,Gait,Activity Tolerance Progress Towards Goals Progressing Toward Goals,Safe For Discharge,Goals Met Assessment Summary Pt increased ambulation distance ~250' w/ SBA and completed 3 stairs CGA. Pt only required CGA on stairs at first for initial safety and then finished SBA. Pt understands precautions, and donning/doffing sling without any assistance. Pt's spouse came in at end of tx and will be able to assist pt as needed at home. PT is recommending safe discharge home w/ assistance. Goals Bed Mobility Goal Independent Transfer Goal Independent Gait Goal Independent Gait Distance 200 Days to Meet Goals 3 Frequency of Treatment Frequency Of Treatment Twice a Day Treatment Plan Physical Therapy Treatment Plan Bed Mobility Training,Transfer Training,Gait Training, Therapeutic Exercise,Post Op Education,Discharge Planning, Hot or Cold Pack Recommendations To Nursing Amount of Assist Needed 1 Person Assist Discharge Recommendations PT Discharge Recommendations Home with Assistance Transportation Needs at Discharge Private Vehicle
--- NOTE | 2020-05-26 10:53 | PC.NURSE ---
Patient educated about ss of infection, new medications, ss of stroke, activity, CHF, opioid use, use of sling, and diet. Patient verbalized all teaching instructions. Patient had bring medications to pharmacy to fill. Patient left facility via wheelchair and private vehicle.
--- NOTE | 2020-05-26 11:20 | CM.DANOTE ---
DCP/Assessment: Reviewed chart. Patient is a 74yr old male admitted to [facility] for right TSA performed on 05-25-20. PCP is Miguel Wagner. Primary payor is 1)NM vivi. Met with patient this AM explained CM/SW role. Patient sitting up on edge of bed having breakfast. At this time patient does not have any d/c planning needs. Patient anticipated to d/c home today. 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 Yes Advance Directives on File No History Provided By Patient,Medical Record Prior Living Arrangements House Household Members spouse Type of transporation used prior to Drives own vehicle admit Independent with ADL's Yes Is patient alert and oriented? Yes Caregiver for Another No DME Already Rented / Owned Other Comment CPAP for night use. Barriers to Discharge No Discharge Plan Home Transportation Arrangement Family to provide transport. Referrals Initiated None needed Whiteboard Updated in Patient Room with Yes name and ext. # of Concrete Products Machine Operator Review Status In Process Next Review Type Continued Stay Review Pre-Anesthesia Assessment Start: 05/13/20 13:33 Freq: Status: Complete Protocol: Document 05/13/20 13:33 CAB (Rec: 05/13/20 14:28 CAB [id number]) Pre-Anesthesia Assessment Preferred Name [facility] Patient Information Reviewed Via Phone Assessment Assessment Completed With Patient Comment Pt needs to do labs/EKG, COVID screen @ 05/23/20 Primary Care Provider Miguel Wagner Seen Specialist in Last 12 Months Yes Specialist Seen Orthopedist Primary Language Argentine Preferred Language Argentine Customer Care Associate Required No Height 177.8 cm Weight 115.212 kg Body Mass Index (BMI) 36.4 Hearing Ability Hard of Hearing,Use of Hearing Aid Visual Assist Glasses Barriers to Learning None Hx Anesthesia Reactions No Hx Family Anesthesia Reaction No Hx Malignant Hyperthermia No Hx Blood Transfusions No Hx Blood Transfusion Reaction No Anesthesia Review Requested No 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 No Does patient have FLANAGAN/SOB No Hx Sleep Apnea Yes CPAP/BIPAP use prescribed and used routinely Currently Taking a Beta Abby Yes: Propranolol Can You Climb a Flight of Stairs Without Yes SOB Hx Chest Pain No Hx SOB No Hx Syncope or Dizziness No Anti-Coagulant Therapy No Has a [employer] No Cardiac Testing No Hx Pacemaker/ICD No Pacemaker Rep Required? No Diet Type At Home Regular dysphagia No Urinary Catheter Present No Hx Urinary Self Catheterization No Diabetes No HgbA1C 5.4 Date 05/10/19 Hx Drug Resistant Organism No Presence of External or Internal Medical Yes: Bilat eye lens, CPAP, H- Devices wave, lt shoulder prosthesis Have you had any close contact with No someone diagnosed with COVID-19? Marital Status Lives With spouse Prior Living Arrangements House Number of Floors (Floors) One Floor Support System Spouse Does the Patient Have Assistance After Yes Surgery Patient Discharge Plan Description Return Home Comment Pt not advised on length of stay per surgeon Feels Safe in Current Environment Yes Been Physically Hurt or Threatened By a No Person in Current Environment Do you have thoughts of harming yourself None or others? Are you currently considering suicide? No Do you have a plan to hurt yourself or No Plan others? Do You Have Any Spiritual Beliefs That No May Affect Your HC Choices? Do You Have Any Cultural Practices That No May Affect Your HC Choices? Comment Confucianism Who Can We Speak to About Patient's Care Family, friends Identifying Code for Release of Patient Declines to issue Information Health Care Proxy/Next of Kin Saray () Health Care Proxy or [phone] Emergency Contact Name Kamran () Emergency Contact or [phone] Advance Directives? Yes Advance Directives on File No Power of Application Technical Designer Yes Power of Application Technical Designer Name Kamran () Power of Application Technical Designer or [phone] PAC Instructions Bring CPAP/BIPAP,Medications to take/avoid,Nasal antibiotic ,No ETOH/petroleum product on skin DOS,NPO,Pre-surgical wash ,Sensory aids,Sturdy shoes/ comfortable clothes,Do not bring valuables and remove jewelry
== END 2020-05-26 11:13 | disposition home or self-care (01) | DRG 483 ==
PROVIDERS: Admitting Provider Orthopaedic Surgery; PCP Nurse Practitioner Family; Referring Provider Nurse Practitioner Family; Visit Provider Orthopaedic Surgery
PROC: 0RRJ00Z Replacement of Right Shoulder Joint with Reverse Ball and Socket Synthetic Substitute, Open Approach (ICD-10-PCS; CPT 23472; principal; 2020-05-25 07:45)
DX: M12.811 Other specific arthropathies, not elsewhere classified, right shoulder (principal); G47.33 Obstructive sleep apnea (adult) (pediatric); F43.10 Post-traumatic stress disorder, unspecified; F32.9 Major depressive disorder, single episode, unspecified; G89.29 Other chronic pain; J45.20 Mild intermittent asthma, uncomplicated; Z87.891 Personal history of nicotine dependence
CPT/HCPCS: 36415; 73020; 85027; 97116; 97161; 97530; C1776; J0690; J1100; J2250; J2405; J2704; J3010